=== PATIENT | female | born 1995 | race African-American/Black ===

== ENCOUNTER 2016-12-17 15:55 | Emergency (ER) | payer OTHER ==
[2016-12-17] MEDS ORDERED: SODIUM CHLORIDE 0.9% 1,000 ML IV ONE ×2 (16:01→17:17)
[2016-12-17 16:25] LABS: BASOPHILS % (AUTO) 0.8 %; EOSINOPHILS % (AUTO) 0.4 %; HCT - HEMATOCRIT 36.3 % (37.0-47.0); HGB - HEMOGLOBIN 12.2 g/dL (12.0-16.0); LYMPHOCYTES # (AUTO) 1.6 10^3/uL (1.5-3.5); LYMPHOCYTES % (AUTO) 29.1 %; MEAN CORPUSCULAR HEMOGLOBIN 29.8 pg (27.0-31.0); MEAN CORPUSCULAR HGB CONC 33.6 g/dL (32.0-36.0); MEAN CORPUSCULAR VOLUME 88.9 fL (81.0-99.0); MEAN PLATELET VOLUME 9.9 fL (7.9-10.8); MONOCYTES # (AUTO) 0.4 10^3/uL (0.0-1.0); MONOCYTES % (AUTO) 6.3 %; NEUTROPHILS # (AUTO) 3.6 10^3/uL (1.5-6.6); NEUTROPHILS % (AUTO) 63.4 %; NUCLEATED RED BLOOD CELLS AUTO 0.1 /100WBC; RED BLOOD COUNT 4.09 10^6/uL (4.20-5.40); RED CELL DISTRIBUTION WIDTH 13.6 % (12.0-15.0); UNCORRECTED WHITE BLOOD COUNT 5.6 x10^3/uL; WHITE BLOOD COUNT 5.6 x10^3/uL (4.8-10.8)
[2016-12-17 16:39] LABS: BILIRUBIN,TOTAL 1.3 mg/dL (0.2-1.0); CALCIUM 9.7 mg/dL (8.5-10.3); CREATININE 0.9 mg/dL (0.4-1.0); POTASSIUM 3.5 mmol/L (3.5-5.0); TOTAL PROTEIN 8.8 g/dL (6.7-8.2)
[2016-12-17 17:17] LABS: BILIRUBIN,URINE NEGATIVE (NEGATIVE); UA w/ MICROSCOPIC CHARGE YES
--- NOTE | 2016-12-17 17:21 | ED Physician Documentation ---
History of Present Illness - Stated complaint Stated Complaint: NEAR SYNCOPE - Chief complaint Chief Complaint: Cardiac - History obtained from History obtained from: Patient - Additonal information Additional information: Patient is a healthy young 21-year-old black female who presents after having a near syncopal episode. She reports feeling normal this morning although she had a small breakfast. 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 She felt light headed and was walking to take a few minutes often gets up to eat when she had a near syncopal episode. She saw spots and felt as if she were going to pass out but was lowered to the ground. From that point to the present she felt better. During that period of time she felt mildly dyspneic but did not have any chest pain. She has not had nausea vomiting, constipation, diarrhea or lower urinary symptoms. She has no leg pain or swelling. Review of systems: For pertinent positive and negatives in the review of systems please see the history of present illness, otherwise all other systems have been reviewed and are negative. Dragon disclaimer: Parts of this medical record were created using voice recognition technology. Because of the inherent limitations of this system, occasional same sounding word substitutions do occur and persist despite proofreading. Please read the document for context. Review of Systems Cardiac: denies: Chest pain / pressure, Palpitations Respiratory: denies: Dyspnea, Cough GI: denies: Abdominal Pain, Abdominal Swelling, Nausea, Vomiting, Constipation, Diarrhea PD PAST MEDICAL HISTORY - Past Medical History Past Medical History: Yes Other Past Medical History: anemia, syncopy - Past Surgical History Past Surgical History: No - Present Medications Home Medications: Ambulatory Orders Medication Instructions Recorded Confirmed Amoxicillin 12/17/16 Ibuprofen [Motrin] 800 mg PO Q8HR 12/17/16 12/17/16 Naproxen [Naprosyn] 500 mg PO BID 12/17/16 12/17/16 - Allergies Allergies/Adverse Reactions: Allergies Allergy/AdvReac Type Severity Reaction Status Date / Time No Known Drug Allergies Allergy Verified 12/17/16 16:04 - Social History Does the pt smoke?: No Smoking Status: Never smoker PD ED PE NORMAL - General General: Alert and oriented X 3, No acute distress, Well developed/nourished - HEENT HEENT: Atraumatic, PERRL, EOMI, Ears normal - Neck Neck: Supple, no meningeal sign, No bony TTP, No adenopathy, No JVD, No bruit - Cardiac Cardiac: RRR, No murmur, No gallop, No rub - Respiratory Respiratory: No respiratory distress, Clear bilaterally - Abdomen Abdomen: Normal bowel sounds, Non tender, Non distended - Derm Derm: Normal color, Warm and dry, No rash, Other - Extremities Extremities: No deformity, No tenderness to palpate, Normal ROM s pain, No edema - Neuro Neuro: Alert and oriented X 3, osteologist 2-12 intact, No motor deficit, No sensory deficit - Psych Psych: Normal mood, Normal affect Results - Vitals Vitals: Vital Signs - 24 hr 12/17/16 12/17/16 12/17/16 16:00 16:38 17:40 Temperature 36.9 C 36.7 C Heart Rate 82 81 Respiratory 15 14 Rate Blood Pressure 133/82 H 119/81 H Blood Pressure 122/72 [Left] Blood Pressure 121/71 [Right] O2 Saturation 97 100 12/17/16 18:32 Temperature Heart Rate 76 Respiratory 16 Rate Blood Pressure 125/73 Blood Pressure [Left] Blood Pressure [Right] O2 Saturation 100 Oxygen O2 Source Room air - Labs Labs: Laboratory Tests 12/17/16 12/17/16 12/17/16 16:17 16:17 16:17 WBC 5.6 RBC 4.09 L Hgb 12.2 Hct 36.3 L MCV 88.9 MCH 29.8 MCHC 33.6 RDW 13.6 Plt Count 140 MPV 9.9 Neut # 3.6 Lymph # 1.6 [place] # 0.4 Eos # 0.0 Baso # 0.0 Absolute Nucleated RBC 0.00 Nucleated RBCs 0.1 Sodium 136 Potassium 3.5 Chloride 104 Carbon Dioxide 19 L Anion Gap 13.0 BUN 19 Creatinine 0.9 Estimated GFR (MDRD) 80 L Glucose 88 Calcium 9.7 Total Bilirubin 1.3 H AST 31 ALT 24 Alkaline Phosphatase 53 Total Protein 8.8 H Albumin 4.3 Globulin 4.5 H Albumin/Globulin Ratio 1.0 Lipase 31 Serum HCG, Qual NEGATIVE Urine Color Urine Clarity Urine pH Ur Specific [place] Urine Protein Urine Glucose (UA) Urine Ketones Urine Occult Blood Urine Nitrite Urine Bilirubin Urine Urobilinogen Ur Leukocyte Esterase Urine RBC Urine WBC Ur Squamous Epith Cells Urine Bacteria Urine Casts Urine Mucus Ur Microscopic Review Urine Culture Comments 12/17/16 16:50 WBC RBC Hgb Hct MCV MCH MCHC RDW Plt Count MPV Neut # Lymph # [place] # Eos # Baso # Absolute Nucleated RBC Nucleated RBCs Sodium Potassium Chloride Carbon Dioxide Anion Gap BUN Creatinine Estimated GFR (MDRD) Glucose Calcium Total Bilirubin AST ALT Alkaline Phosphatase Total Protein Albumin Globulin Albumin/Globulin Ratio Lipase Serum HCG, Qual Urine Color YELLOW Urine Clarity CLEAR Urine pH 6.0 Ur Specific [place] 1.025 Urine Protein 30 H Urine Glucose (UA) NEGATIVE Urine Ketones >=80 H Urine Occult Blood MODERATE H Urine Nitrite NEGATIVE Urine Bilirubin NEGATIVE Urine Urobilinogen 0.2 (NORMAL) Ur Leukocyte Esterase NEGATIVE Urine RBC 0-5 Urine WBC 0-3 Ur Squamous Epith Cells MANY Squamous H Urine Bacteria Few Urine Casts 0-2 Hyaline Casts Urine Mucus Marked Strands Ur Microscopic Review INDICATED Urine Culture Comments NOT INDICATED PD MEDICAL DECISION MAKING - ED course ED course: Pleasant lady who had a near syncopal episode today. She had her wisdom teeth removed has not been eating and drinking her normal amount. He had very little breakfast today is warm outside culminating in a nursing will episode there is no evidence of cardiac syncope no evidence of infection venous thromboembolism or anything serious she is given 2 L of saline and looks and feels better at this point will be discharged home in improved condition Disposition to home Clinical impression: 1. Vasovagal syncope 2. Ketonuria 3. Dehydration Departure - Departure Disposition: 01 Home, Self Care Clinical Impression: Syncope Condition: Good Instructions: ED Syncope Vasovagal
[2016-12-17 17:30] LABS: UR CULTURE IF IND NOT INDICATED; WBC,URINE 0-3 /HPF (0-5)
[2016-12-17 18:33] VITALS: BP 125/73
== END 2016-12-17 18:56 | disposition home or self-care (01) ==
LOC: ED 15:55
DX: R55 Syncope and collapse (principal); R82.4 Acetonuria; E86.0 Dehydration; Z98.890 Other specified postprocedural states
CPT/HCPCS: 36415; 80053; 81001; 81003; 81025; 83690; 84703; 85025; 87086; 93005; 96360; 99283

== ENCOUNTER 2018-01-20 12:28 | Emergency (ER) | payer OTHER ==
[2018-01-20 12:37] VITALS: BP 119/82
[2018-01-20] MEDS ORDERED: LORATADINE 10 MG TABLET PO STA (12:53)
[2018-01-20] MEDS ORDERED: predniSONE 20 MG TABLET PO STA (12:55)
--- NOTE | 2018-01-20 12:59 | ED Physician Documentation ---
History of Present Illness - Stated complaint Stated Complaint: ALLERGIC REACTION - Chief complaint Chief Complaint: Wound - Additonal information Additional information: hx from pt 22 y/o f had some old makeup tested a bit on her hand developed itching and bumps to her face took some benadryl last night still itchy bumpy today no other new food meds lotions etc Review of Systems Skin: reports: Rash PD PAST MEDICAL HISTORY - Past Medical History Past Medical History: No - Past Surgical History Past Surgical History: No - Present Medications Home Medications: Ambulatory Orders Medication Instructions Recorded Confirmed Amoxicillin 12/17/16 Ibuprofen [Motrin] 800 mg PO Q8HR 12/17/16 12/17/16 Naproxen [Naprosyn] 500 mg PO BID 12/17/16 12/17/16 Loratadine [Claritin] 10 mg PO DAILY PRN #5 tablet 01/20/18 - Allergies Allergies/Adverse Reactions: Allergies Allergy/AdvReac Type Severity Reaction Status Date / Time No Known Drug Allergies Allergy Verified 01/20/18 12:36 - Social History Does the pt smoke?: No Smoking Status: Never smoker PD ED PE NORMAL - Vitals Vital signs reviewed: Yes - HEENT HEENT: Other (faint skin tones papules primarily to eyelids and upper lip, no oral swelling) - Cardiac Cardiac: RRR - Respiratory Respiratory: Clear bilaterally Results - Vitals Vitals: Vital Signs - 24 hr 01/20/18 12:34 Temperature 35.7 C L Heart Rate 86 Respiratory 15 Rate Blood Pressure 119/82 H O2 Saturation 99 Oxygen O2 Source Room air PD MEDICAL DECISION MAKING - Sepsis Event Vital Signs: Vital Signs - 24 hr 01/20/18 12:34 Temperature 35.7 C L Heart Rate 86 Respiratory 15 Rate Blood Pressure 119/82 H O2 Saturation 99 Oxygen O2 Source Room air Departure - Departure Disposition: 01 Home, Self Care Clinical Impression: Allergic reaction Qualifiers: Encounter type: initial encounter Qualified Code(s): T78.40XA - Allergy, unspecified, initial encounter Condition: Good Instructions: ED Allergic Reaction General Other Follow-Up: Provider,Other [Primary Care Provider] - Prescriptions: Loratadine [Claritin] 10 mg PO DAILY PRN #5 tablet PRN Reason: allergic reaction Comments: No further doses of steroids are needed. Recommend you take claritin once a day until better Follow up at [place] as needed Return if worse
== END 2018-01-20 13:29 | disposition home or self-care (01) ==
LOC: ED 12:28
DX: T78.40XA Allergy, unspecified, initial encounter (principal)
CPT/HCPCS: 99283; A9270; J7512

== ENCOUNTER 2019-03-25 22:49 | Emergency (ER) | payer OTHER ==
--- NOTE | 2019-03-26 01:08 | ED Physician Documentation ---
History of Present Illness - Stated complaint Stated Complaint: FEMALE/;MIGRAINE;RT ARMPIT LUMP - Chief complaint Chief Complaint: General - Additonal information Additional information: This is a 23-year-old female who presents with Multiple complaints: 1. for the last 2 weeks patient has had odorless, clear vaginal discharge. She denies any itching or burning in her vagina. She denies any abdominal pain. [place] abnormalities in her urine or on exam. She denies concern for sexual transmitted infection. She does feel that after she urinates sometimes she feels like she needs to go a little more even when she is emptied her bladder. She is wondering if she has a urinary tract infection, despite [place] 2. She has a small cyst in her armpit, which she noticed last week, and the doctor did her Pap smear told her to "keep an eye on it", so she would like this looked at as well 3. Patient will occasionally get headaches, They seem to be triggered more when she looks in certain directions. She has been taking Tylenol for this and it does seem to help. She denies any weakness or numbness. The headaches are mild, she denies any confusion or fever. She has no headache currently. Review of Systems Constitutional: denies: Fever Eyes: denies: Loss of vision Throat: denies: Dental pain / toothache Cardiac: denies: Chest pain / pressure Respiratory: denies: Dyspnea GI: denies: Abdominal Pain : reports: Discharge Skin: denies: Rash Musculoskeletal: denies: Neck pain Neurologic: denies: Generalized weakness PD PAST MEDICAL HISTORY - Past Medical History Past Medical History: No - Past Surgical History Past Surgical History: No - Present Medications Home Medications: Ambulatory Orders Medication Instructions Recorded Confirmed Doxycycline Hyclate 100 mg PO BID #20 capsule 03/26/19 - Allergies Allergies/Adverse Reactions: Allergies Allergy/AdvReac Type Severity Reaction Status Date / Time No Known Drug Allergies Allergy Verified 03/25/19 22:59 - Social History Does the pt smoke?: No Smoking Status: Never smoker Does the pt drink ETOH?: Yes ETOH Use: Wine, Liquor Does the pt have substance abuse?: No - Immunizations Immunizations are current?: Yes - POLST Patient has POLST: No PD ED PE NORMAL - Vitals Vital signs reviewed: Yes - General General: Alert and oriented X 3, No acute distress - HEENT HEENT: PERRL, EOMI, Moist mucous membranes - Neck Neck: Supple, no meningeal sign - Cardiac Cardiac: RRR, No murmur - Respiratory Respiratory: No respiratory distress, Clear bilaterally - Abdomen Abdomen: Soft, Non tender, Non distended - Female Female : Other (Pt declined) - Derm Derm: Warm and dry - Extremities Extremities: No deformity, Other (There is a 1.5x1.5cm area of induration, fluctuance in the R armpit, with US there is a confirmed very small fluid pocket consistent with small abscess/infected cyst.) - Neuro Neuro: Alert and oriented X 3, social security benefits interviewer 2-12 intact, No motor deficit, No sensory deficit, Normal speech - Psych Psych: Normal mood, Normal affect Results - Vitals Vitals: Vital Signs - 24 hr 03/25/19 03/26/19 22:56 02:17 Temperature 36.6 C Heart Rate 94 78 Respiratory 16 16 Rate Blood Pressure 130/93 H 117/65 O2 Saturation 99 99 Oxygen O2 Source Room air - Labs Labs: Laboratory Tests 03/26/19 03/26/19 02:20 02:20 Urine Color YELLOW Urine Clarity CLEAR Urine pH 7.0 Ur Specific [place] 1.020 1.020 Urine Protein NEGATIVE Urine Glucose (UA) NEGATIVE Urine Ketones NEGATIVE Urine Occult Blood NEGATIVE Urine Nitrite NEGATIVE Urine Bilirubin NEGATIVE Urine Urobilinogen 0.2 (NORMAL) Ur Leukocyte Esterase NEGATIVE Urine RBC None Seen Urine WBC 0-3 Ur Squamous Epith Cells RARE Squamous Urine Bacteria Rare Urine Culture Comments NOT INDICATED Urine HCG, Qual NEGATIVE Procedures - Abscess I&D (location) R armpit Preparation: Confirmed with ultrasound, Lidocaine 1% Incision: Incised with scalpel, Other (Small amount of sanguinous/purulent discharge, <2cc.) Other: Pt tolerated well, Dressing applied, Antibiotic prescribed PD MEDICAL DECISION MAKING - ED course Complexity details: considered differential (Abscess, cellulitis, folliculitis, STI, UTI, BV, tension headache, migraine, mass) ED course: Pt presents with multiple complaints. 1.Regarding her vaginal discharge, she is not having any itching or burning or abdominal pain, has had negative UA and testing and reportedly normal examination. I recommended pelvic exam and potential vaginitis panel, pt dec lined and wants to follow up with her OB. I explained that without examination I am unable to assess and potentially diagnose this issue, she understands. UA is negative, HCG negative today. 2. Regarding her headaches, they are mild and not associated with any red flags. Her neuro exam is normal. She is very well appearing and asymptomatic at this time. I highly doubt intracranial pathology. I discussed continued PCP follow up and return precautions. 3. Her right armpit does have a small area of erythema and induration. On US there is a very small area of fluid. This appears to be a small abscess or infected cyst, I&D performed with a small amount of milky fluid returned. She was started on doxycycline and wound care and follow up discussed. Pt agreed and was discharged home. Departure - Departure Disposition: 01 Home, Self Care Clinical Impression: Vaginal discharge Condition: Good Follow-Up: Your,PCP [Other] - Within 1 week Prescriptions: Doxycycline Hyclate 100 mg PO BID #20 capsule Comments: I do not see signs of a urinary tract infection today. Please follow-up with your primary care provider or your buyer agent for a pelvic exam and further evaluation of your discharge. We will call you if any of your cultures come back positive. Please also follow-up with your primary care provider on your headaches. If you have any new or worsening symptoms, return to the emergency d epartment. Please keep an eye on the area of swelling in your armpit. Take the antibiotic as prescribed, and if the area is getting much bigger, grabbing other signs of worsening infection return to the emergency department. Do not shave until the redness and swelling resolves. Discharge Date/Time: 03/26/19 03:28
[2019-03-26 02:23] VITALS: BP 117/65
[2019-03-26 02:28] LABS: BILIRUBIN,URINE NEGATIVE (NEGATIVE); GLUCOSE, URINE (UA) NEGATIVE (NEGATIVE); KETONES,URINE (UA) NEGATIVE (NEGATIVE); LEUKOCYTE ESTERASE, URINE NEGATIVE (NEGATIVE); NITRITE,URINE NEGATIVE (NEGATIVE); OCCULT BLOOD,URINE NEGATIVE (NEGATIVE); PROTEIN,URINE NEGATIVE (NEGATIVE); UROBILINOGEN,URINE 0.2 (NORMAL) E.U./dL (NORMAL)
[2019-03-26 02:32] LABS: CLARITY,URINE CLEAR (CLEAR)
[2019-03-26 02:34] LABS: BACTERIA,URINE Rare /HPF (None Seen); RBC,URINE None Seen /HPF (0-5); SQUAMOUS EPITHELIAL CELL,UR RARE Squamous (<= Few)
[2019-03-26 02:35] LABS: HCG UR QUAL NEGATIVE
[2019-03-26] MEDS ORDERED: LIDOCAINE 1% 2 ML VIAL SUBQ STA (02:46)
[2019-03-26 22:15] LABS: TRICHOMONAS VAGINALIS DNA NEGATIVE (NEGATIVE)
== END 2019-03-26 03:28 | disposition home or self-care (01) ==
LOC: ED 22:49
DX: L02.411 Cutaneous abscess of right axilla (principal); N89.8 Other specified noninflammatory disorders of vagina; R51 Headache
CPT/HCPCS: 10060; 81001; 81025; 87086; 87491; 87591; 87661